=== PATIENT | female | born 1995 | race African-American/Black ===

== ENCOUNTER 2022-10-30 20:42 | Emergency (ER) | payer OTHER, SELFPAY | END 2022-10-30 21:13 | disposition home or self-care (01) | LOC: CSHERS 20:42 | DX: Z20.822 Contact with and (suspected) exposure to COVID-19 (principal) | CPT/HCPCS: 99283; U0003; U0005 ==

== ENCOUNTER 2022-11-03 21:08 | Emergency (ER) | payer OTHER, SELFPAY ==
[2022-11-03] MEDS ORDERED: Metoclopramide HCl 10 MG/2 ML VIAL ONE (23:13)
[2022-11-03] MEDS ORDERED: Ketorolac Tromethamine 30 MG/ML VIAL ONE (23:14)
== END 2022-11-04 00:15 | disposition home or self-care (01) ==
LOC: CSHERS 21:08
DX: G43.909 Migraine, unspecified, not intractable, without status migrainosus (principal); G44.209 Tension-type headache, unspecified, not intractable
CPT/HCPCS: 96374; 96375; J1885; J2765

== ENCOUNTER 2023-01-13 19:28 | Emergency (ER) | payer SELFPAY | END 2023-01-13 21:25 | disposition home or self-care (01) | LOC: CSHERS 19:28 | DX: S06.0XAA Concussion with loss of consciousness status unknown, initial encounter (principal); S01.01XA Laceration without foreign body of scalp, initial encounter; W21.03XA Struck by baseball, initial encounter | CPT/HCPCS: 70450 ==